=== PATIENT | male | born 1990 | race Two or more races ===

== ENCOUNTER 2023-02-17 09:07 | Emergency (ER) | payer MEDICARE ==
[~2023-02-17] VITALS: Ht 154.9 cm; Wt 65.8 kg
[2023-02-17 09:10] VITALS: BP 112/85; PULSE 75; RESP 18; TEMP 98.6; O2SAT 98
== END 2023-02-17 12:35 | disposition home or self-care (01) ==
LOC: ER 09:07
DX: R63.2 Polyphagia (principal)
CPT/HCPCS: 82962